=== PATIENT | female | born 1965 | race Caucasian/White ===

== ENCOUNTER 2022-08-28 10:32 | Outpatient (CLI) | payer OTHER | END 2022-08-28 10:33 | disposition home or self-care (01) | LOC: CSHMAMMO 10:32 | PROVIDERS: ATTEND Internal Medicine | DX: Z12.31 Encounter for screening mammogram for malignant neoplasm of breast (principal); Z80.3 Family history of malignant neoplasm of breast | CPT/HCPCS: 77063; 77067 ==

== ENCOUNTER 2022-09-05 10:26 | Outpatient (CLI) | payer OTHER | END 2022-09-05 10:27 | disposition home or self-care (01) | LOC: CSHMAMMO 10:26 | PROVIDERS: ATTEND Internal Medicine | DX: Z13.820 Encounter for screening for osteoporosis (principal) | CPT/HCPCS: 77080 ==